=== PATIENT | male | born 1990 | race Caucasian/White ===

== ENCOUNTER 2021-07-07 12:40 | Emergency (ER) | payer OTHER ==
[~2021-07-07] VITALS: Ht 180.3 cm; Wt 78.0 kg
[2021-07-07] MEDS ORDERED: AMOXICILLIN500 M2 PO (13:03)
== END 2021-07-07 13:12 | disposition home or self-care (01) ==
LOC: ED 12:40
DX: K08.89 Other specified disorders of teeth and supporting structures (principal); Z88.8 Allergy status to other drugs, medicaments and biological substances

== ENCOUNTER 2024-03-27 21:06 | Emergency (ER) | payer MEDICAID ==
[~2024-03-27] VITALS: Ht 177.8 cm; Wt 72.6 kg
[~2024-03-27 21:06] MED LIST: AMOXICILLIN500 M2 PO
== END 2024-03-27 23:00 | disposition left against medical advice (07) ==
LOC: ED 21:06
DX: S99.921A Unspecified injury of right foot, initial encounter (principal); Z88.6 Allergy status to analgesic agent; Z53.29 Procedure and treatment not carried out because of patient's decision for other reasons; W23.0XXA Caught, crushed, jammed, or pinched between moving objects, initial encounter; Y93.89 Activity, other specified; Y92.89 Other specified places as the place of occurrence of the external cause; Y99.0 Civilian activity done for income or pay